=== PATIENT | female | born 1940 | race Caucasian/White ===

== ENCOUNTER 2024-07-18 09:37 | Outpatient (REF) | payer OTHER, SELFPAY ==
[2024-07-18 11:43] LABS: Syphilis Screen Nonreactive (Nonreactive)
[2024-07-18 11:47] LABS: Vitamin B12 373 pg/mL (200-900)
[2024-07-20 02:33] LABS: Lyme Abs Screen <0.90 index
== END 2024-07-18 09:38 | disposition home or self-care (01) ==
LOC: HO.LAB 09:37
PROVIDERS: PCP Family Medicine; Visit Provider Psychiatry & Neurology Neurology
DX: G30.9 Alzheimer's disease, unspecified (principal)
CPT/HCPCS: 36415; 82607; 86617; 86618; 86780